=== PATIENT | female | born 1955 ===

== ENCOUNTER 2022-12-21 10:30 | Inpatient (IN) | payer OTHER ==
[~2022-12-21] VITALS: Ht 154.9 cm; Wt 0.5 kg
[2022-12-21] MEDS ORDERED: IRBESARTAN-HCT1 EAC1 PO (14:05)
[2022-12-21] MEDS ORDERED: ZETIA10 MG PO (14:05)
[2022-12-21] MEDS ORDERED: TENORMIN50 M1 PO (14:06)
[2022-12-21] MEDS ORDERED: SYNTHROID88 MCG PO (14:06)
[2022-12-21] MEDS ORDERED: AMLODIPINE-OLM1 EAC2 PO (14:06)
[2022-12-21] MEDS ORDERED: FOSAMAX70 MG PO (14:06)
== END 2022-12-25 20:00 | disposition home or self-care (01) | DRG 331 ==
LOC: O/R 12-23 05:19 → SURG 12-23 07:00 → SURH 12-23 15:12
PROVIDERS: ADMIT Colon & Rectal Surgery; ATTEND Colon & Rectal Surgery
PROC: 0DBP4ZZ Excision of Rectum, Percutaneous Endoscopic Approach (ICD-10-PCS; 2022-12-23)
PROC: 0DJD8ZZ Inspection of Lower Intestinal Tract, Via Natural or Artificial Opening Endoscopic (ICD-10-PCS; 2022-12-23)
PROC: 0DTN4ZZ Resection of Sigmoid Colon, Percutaneous Endoscopic Approach (ICD-10-PCS; principal; 2022-12-23 07:00)
DX: K57.20 Diverticulitis of large intestine with perforation and abscess without bleeding (principal); R10.32 Left lower quadrant pain; Z20.822 Contact with and (suspected) exposure to COVID-19; I10 Essential (primary) hypertension; E03.9 Hypothyroidism, unspecified